=== PATIENT | female | born 1995 | race Two or more races ===

== ENCOUNTER 2017-03-30 13:24 | Emergency (ER) | payer MEDICAID, OTHER ==
[~2017-03-30] VITALS: Ht 152.4 cm; Wt 64.9 kg
[~2017-03-30 13:24] MED LIST: DIAZEPAM5 MG ORAL; IBUPROFEN600 MG ORAL; NKM; TYLENOL EXTRA500 MG ORAL
[2017-03-30 13:55] VITALS: BP 124/73
[2017-03-30] MEDS ORDERED: Tetanus/Diptheria/Pertussis Vaccine 0.5ml Syr IM ONE (14:00)
[2017-03-30] MEDS ORDERED: Bacitracin Oint UD TOPIC ONE (14:00)
[2017-03-30] MEDS ORDERED: IBUPROFEN600 MG ORAL (14:59)
[2017-03-30 15:10] VITALS: BP 112/77
--- NOTE | 2017-03-30 23:16 | Emergency Room Report ---
History of Present Illness General Chief Complaint: Laceration Source: Patient Present Illness HPI The patient is a 21-year-old female presenting for right index finger pain after cutting it on a knife yesterday. She states that this occurred accidentally while washing dishes at home. Pain is a 4/10 dull ache and does not radiate. Worse with touch. Last tetanus shot is unknown. She denies any other injury or symptoms. Allergies: Coded Allergies: No Known Allergies (Unverified , 08/27/15) Patient History Past Medical History: see triage record Pertinent Family History: none Reviewed Nursing Documentation: PMH: Agreed, PSxH: Agreed Nursing Documentation-PMH Past Medical History: No Stated History Review of Systems All Other Systems: negative except mentioned in HPI Physical Exam Vital Signs Date Time Temp Pulse Resp B/P (MAP) Pulse Ox O2 Delivery O2 Flow Rate FiO2 03/30/17 13:45 99.0 92 16 124/73 99 Room Air Sp02 EP Interpretation: reviewed, normal General Appearance: no apparent distress, alert, GCS 15, non-toxic Head: normocephalic, atraumatic Eyes: bilateral eye normal inspection, bilateral eye PERRL Musculoskeletal: normal range of motion, tender - TTP over the R 2nd digit, distal Neurologic: alert, oriented x3, responsive, motor strength/tone normal, sensory intact, speech normal Psychiatric: judgement/insight normal, memory normal, mood/affect normal, no suicidal/homicidal ideation Skin: normal color, no rash, laceration - 1cm linear laceration to distal R 2nd digit. Approximated well Lymphatic: no adenopathy Procedures Laceration/Wound Repair Laceration/Wound Repair : Consent: Verbal Wound Location: upper extremity Wound's Depth, Shape: superficial, linear Wound Length (cm): 2 Wound Explored: clean Irrigated w/ Saline (ccs): 100 Betadine Prep?: Yes Volume Anesthetic (ccs): 0 Wound Repaired With: Dermabond Sterile Dressing Applied?: No Splint Applied?: No Sling Applied?: No Patient Tolerated: Well Complications: None Medical Decision Making PA Attestation Dr. Walls is my supervising physician. Patient management was discussed with my supervising physician Diagnostic Impression: Primary Impression: Finger laceration Qualified Codes: S61.210A - Laceration without foreign body of right index finger without damage to nail, initial encounter ER Course The patient is a 21-year-old female presenting for right index finger pain after cutting it on a knife yesterday Ddx considered include but not limited to fracture, tendon/ligament injury, avulsion, nerve damage Physical exam: No apparent distress Right second digit has a 1 cm linear laceration over the distal phalanx. No active bleeding. Sensation is intact. Full active range of motion is intact The area is cleaned with normal saline and Betadine. Dermabond was used for laceration repair. Well approximated.] The patient will followup with primary doctor. ER precautions are given Last Vital Signs Date Time Temp Pulse Resp B/P (MAP) Pulse Ox O2 Delivery O2 Flow Rate FiO2 03/30/17 15:10 86 14 112/77 97 Room Air 03/30/17 13:55 99.0 Status: improved Disposition: HOME, SELF-CARE Condition: Improved Scripts Ibuprofen* (MOTRIN*) 600 Mg Tablet 600 MG ORAL Q8H Y for For Pain, #30 TAB 0 Refills Prov: ALEJANDRO FUNG 03/30/17 Departure Forms: Return to Work Return to Work Date: Mar 31, 2017 Other Restrictions: Limited Use of R hand Return to Full Activity: Apr 06, 2017 Patient Instructions: Nonsutured Laceration Care Additional Instructions: I discussed my findings with the patient. All questions and concerns have been answered. Treatment and medication compliance have been addressed. Please followup with your primary care doctor within one week for wound check. Return to emergency Department if you experience any symptoms including increased pain, redness, discharge from the wound, and/or fever ALEJANDRO FUNG Mar 30, 2017 23:16
== END 2017-03-30 15:10 | disposition home or self-care (01) ==
LOC: EMR 14:02
DX: S61.210A Laceration without foreign body of right index finger without damage to nail, initial encounter (principal); W26.0XXA Contact with knife, initial encounter; Y93.G1 Activity, food preparation and clean up; Y92.009 Unspecified place in unspecified non-institutional (private) residence as the place of occurrence of the external cause; Z23 Encounter for immunization
CPT/HCPCS: 12001; 90471; 90715; 99283; Z7502

== ENCOUNTER 2017-08-26 20:08 | Emergency (ER) | payer OTHER ==
[~2017-08-26] VITALS: Ht 147.3 cm; Wt 61.2 kg
[2017-08-26] MEDS ORDERED: Lidocaine 1% 10mg/ml/Epi 0.005mg/ml 30ml vial INJ ONE (20:30)
--- NOTE | 2017-08-26 20:39 | Emergency Room Report ---
History of Present Illness General Chief Complaint: Skin Rash/Abscess Source: Patient Present Illness HPI Patient's 21-year-old female who presented after increased right leg swelling and discomfort. Patient had recent had abscess in multiple locations. She reports having no recent fevers. She was sent in from clinic for possible incision and drainage. The patient was noted to have recently been taking Keflex. She reports being on her period. She denies any prior history of immunocompromise. Allergies: Coded Allergies: No Known Allergies (Unverified , 08/27/15) Patient History Past Medical History: see triage record Last Menstrual Period: today Now: No Reviewed Nursing Documentation: PMH: Agreed; PSxH: Agreed Nursing Documentation-PMH Past Medical History: No Stated History Review of Systems All Other Systems: negative except mentioned in HPI Physical Exam Vital Signs Date Time Temp Pulse Resp B/P (MAP) Pulse Ox O2 Delivery O2 Flow Rate FiO2 08/26/17 20:16 98.5 124 18 124/76 98 Room Air 98.4 General Appearance: well appearing, no apparent distress, alert, GCS 15, non- toxic Head: normocephalic, atraumatic ENT: hearing grossly normal, normal voice Neck: full range of motion, supple Respiratory: no respiratory distress, speaking full sentences Musculoskeletal: no calf tenderness, inflammation - right medial thigh Neurologic: normal inspection, alert, oriented x3, responsive, normal gait Psychiatric: mood/affect normal Skin: other - multiple small skin lesions, abscess to right thigh 2cm with surrounding erythema and warmth Procedures Incision and Drainage Incision and Drainage : Consent: Verbal Site: thigh I & D Procedure: betadine prep, sterile drapes applied Wound Location: upper extremity Wound's Depth, Shape: superficial Wound Length (cm): 1 Anesthesia: Lidocaine w/ Epi Volume Anesthetic (ccs): 5 Patient Tolerated: Well Complications: None Medical Decision Making Diagnostic Impression: Primary Impression: Abscess ER Course Patient presented for skin rash. Differential diagnosis included was not limited to abscess, cellulitis, folliculitis, Fourniere's gangrene, endocarditis. Patient has a benign exam and does not appear to require any further imaging or laboratory testing at this time. The patient was consented for incision and drainage. Patient is advised to keep wound clean and dry. She is given prescription for doxycycline. The patient is advised to have the wound rechecked in 2-3 days. The patient is advised to return if she began having fever, increased swelling worsening pain or other concerns. Last Vital Signs Date Time Temp Pulse Resp B/P (MAP) Pulse Ox O2 Delivery O2 Flow Rate FiO2 08/26/17 20:16 98.5 124 18 124/76 98 Room Air 98.4 Status: improved Disposition: HOME, SELF-CARE Condition: Stable Scripts Hydrocodone Bit/Acetaminophen 5-325* (NORCO 5-325*) 1 Each Tablet 1 TAB ORAL Q6H PRN for For Pain, #6 TAB 0 Refills Prov: Gene Fernandez 08/26/17 Doxycycline Monohydrate* (DOXYCYCLINE MONOHYDRATE*) 100 Mg Capsule 100 MG ORAL Q12H, #14 CAP 0 Refills Prov: Gene Fernandez 08/26/17 Gene Fernandez Aug 26, 2017 20:39
[2017-08-26] MEDS ORDERED: Norco 5mg/325mg tab ORAL ONE (20:45)
[2017-08-26] MEDS ORDERED: DOXYCYCLINE MO100 MG ORAL (20:49)
[2017-08-26] MEDS ORDERED: NORCO 5-325 TA1 EACH ORAL (20:49)
[2017-08-26 21:11] VITALS: BP 124/76
[2017-08-26 21:14] VITALS: BP 124/76
== END 2017-08-26 21:15 | disposition home or self-care (01) ==
LOC: EMR 20:36
DX: L02.415 Cutaneous abscess of right lower limb (principal)
CPT/HCPCS: 10060; 99284

== ENCOUNTER 2018-05-02 16:23 | Emergency (ER) | payer OTHER ==
[~2018-05-02] VITALS: Ht 144.8 cm; Wt 64.4 kg
[~2018-05-02 16:23] MED LIST changes: +DOXYCYCLINE MO100 MG ORAL; +NORCO 5-325 TA1 EACH ORAL
--- NOTE | 2018-05-02 17:19 | NUR ---
ED Nurse Note:blood and urine sent to labs , pt. went to vagunal U/S
[2018-05-02 17:26] LABS: APPEARANCE,URINE CLOUDY; BASOPHILS % (AUTO) 0.8 % (0.0-2.0); BILIRUBIN, URINE NEGATIVE (NEGATIVE); COLOR,URINE PALE YELLOW; EOSINOPHILS % (AUTO) 1.1 % (0.0-3.0); GLUCOSE, URINE (UA) NEGATIVE (NEGATIVE); HEMATOCRIT 34.5 % (37.0-47.0); HEMOGLOBIN 11.8 G/DL (12.0-16.0); KETONES,URINE NEGATIVE (NEGATIVE); LEUKOCYTE ESTERASE ,URINE NEGATIVE (NEGATIVE); LYMPHOCYTES % (AUTO) 17.3 % (20.0-45.0); MEAN CORPUSCULAR VOLUME 94 FL (80-99); MONOCYTES % (AUTO) 7.3 % (1.0-10.0); NEUTROPHILS % (AUTO) 73.5 % (45.0-75.0); NITRITE,URINE NEGATIVE (NEGATIVE); PH,URINE 9 (4.5-8.0); PLATELET COUNT 215 K/UL (150-450); PROTEIN,URINE NEGATIVE (NEGATIVE); RED BLOOD COUNT 3.68 M/UL (4.20-5.40); RED CELL DISTRIBUTION WIDTH 11.2 % (11.6-14.8); UROBILINOGEN,URINE NORMAL MG/DL (0.0-1.0); WHITE BLOOD COUNT 8.9 K/UL (4.8-10.8)
[2018-05-02 17:41] LABS: ANION GAP 8 mmol/L (5-15); BLOOD UREA NITROGEN 5 mg/dL (7-18); CARBON DIOXIDE 27 MMOL/L (21-32); CHLORIDE 107 MMOL/L (98-107); CREATININE 0.6 MG/DL (0.55-1.30); POTASSIUM 3.8 MMOL/L (3.5-5.1); SODIUM 142 MMOL/L (136-145)
[2018-05-02 17:45] LABS: ALANINE AMINOTRANSFERASE 22 U/L (12-78); ALBUMIN 3.8 G/DL (3.4-5.0); ALBUMIN/GLOBULIN RATIO 1.2 (1.0-2.7); ALKALINE PHOSPHATASE 74 U/L (46-116); ASPARTATE AMINO TRANSFERASE 12 U/L (15-37); BILIRUBIN,TOTAL 0.2 MG/DL (0.2-1.0)
--- NOTE | 2018-05-02 18:04 | NUR ---
ED Nurse Note:pt. is back from U/S
--- NOTE | 2018-05-02 18:15 | Diagnostic Imaging Report ---
EXAM: US Pelvis Complete, Transabdominal US Pelvis, Transvaginal CLINICAL HISTORY: PAIN TECHNIQUE: Real-time transabdominal and transvaginal pelvic ultrasound (complete) with image documentation. Transvaginal imaging was used for better evaluation of the endometrium and adnexa. COMPARISON: No relevant prior studies available. FINDINGS: Uterus/cervix: Heterogeneous mildly prominent 1.5 cm endometrium in the lower uterus which may be hemorrhage, retained products, versus lesion. Uterus 8 x 5.2 x 4.5 cm. No myometrial mass. Right ovary: Right ovary 2.9 x 2 x 2 cm. Normal blood flow. Left ovary: Left ovary not clearly visualized. Free fluid: Trace free fluid. Bladder: Unremarkable as visualized. Other findings: No IUP identified. IMPRESSION: 1. No IUP identified. 2. Heterogeneous mildly prominent 1.5 cm endometrium in the lower uterus which may be hemorrhage, retained products, versus lesion.
--- NOTE | 2018-05-02 18:22 | Emergency Room Report ---
History of Present Illness General Chief Complaint: Complications Source: Patient Present Illness HPI 22-year-old female presents to the emergency department complaining of vaginal bleeding during early x 5 days. Pt reports initially bright red blood , however now has become dark in color and passing clots. Patient states that she had positive urine test both at home and at her doctor's office and that her doctor estimated that she is approximately 6 weeks . Patient is . She reports some mild lower abdominal cramping which she rates is 8/10 in severity. She states that she had a missed period this month which prompted her to check urine. Denies nausea, vomiting, fevers, chills, dizziness, syncope, DUMONT, constipation or diarrhea. Denies abdominal tenderness. Allergies: Coded Allergies: No Known Allergies (Unverified , 05/02/18) Patient History Past Medical History: see triage record Past Surgical History: none Pertinent Family History: none Last Menstrual Period: Mar 17, 2018 Reviewed Nursing Documentation: PMH: Agreed; PSxH: Agreed Nursing Documentation-PMH Past Medical History: No Stated History Review of Systems All Other Systems: negative except mentioned in HPI Physical Exam Vital Signs Date Time Temp Pulse Resp B/P (MAP) Pulse Ox O2 Delivery O2 Flow Rate FiO2 05/02/18 16:38 98.2 95 16 119/73 99 Room Air Sp02 EP Interpretation: reviewed, normal General Appearance: no apparent distress, alert, GCS 15, non-toxic Head: normocephalic, atraumatic Eyes: bilateral eye normal inspection, bilateral eye PERRL ENT: hearing grossly normal, normal voice Neck: full range of motion Respiratory: lungs clear, normal breath sounds, speaking full sentences Cardiovascular #1: regular rate, rhythm Gastrointestinal: normal bowel sounds, non tender, soft Genitourinary: normal inspection, no CVA tenderness Musculoskeletal: back normal, gait/station normal, normal range of motion, non- tender Neurologic: alert, oriented x3, responsive, motor strength/tone normal, sensory intact, speech normal, grossly normal Psychiatric: judgement/insight normal Skin: normal color, no rash, warm/dry, well hydrated Lymphatic: no adenopathy Medical Decision Making PA Attestation Dr. Cuenca is my supervising Physician whom patient management has been discussed with. Diagnostic Impression: Primary Impression: Threatened miscarriage in early ER Course 22-year-old female presents to the emergency department complaining of vaginal bleeding during early x 5 days. Pt reports initially bright red blood , however now has become dark in color and passing clots. Patient states that she had positive urine test both at home and at her doctor's office and that her doctor estimated that she is approximately 6 weeks . Patient is . She reports some mild lower abdominal cramping which she rates is 8/10 in severity. She states that she had a missed period this month which prompted her to check urine. Denies nausea, vomiting, fevers, chills, dizziness, syncope, DUMONT, constipation or diarrhea. Denies abdominal tenderness. Ddx considered but are not limited to: Fibroid, ectopic , Fibroid, Spontaneous , missed miscarriage. Vital signs: are WNL, pt. is afebrile H&PE are most consistent with: spotting during early , threatened miscarriage. ORDERS: -CBC, CMP: Unremarkable no evidence of acute blood loss/significant anemia. -serum Hcg Quant: 2613 - Blood/RH type and screen- see attached labs -Pelvic US complete- Thickened myometrium, no IUP noted, ED INTERVENTIONS: None at this time. I discussed with the patient that she requires close outpatient CLINICAL APPEALS REVIEWER follow- up and repeat beta hCG to assess trend in her hormone level. Also d/w pt. results of blood work and that she does not show signs of significant blood loss. I discussed with her that this could be a possible miscarriage as well and that medications to stop the bleeding could cause her to retain material and that this decision would best be made by the CLINICAL APPEALS REVIEWER. I discussed with this patient that she needs to follow-up with CLINICAL APPEALS REVIEWER within 48 hours if she is unable to do so and she is still having symptoms or she develops new or worsening symptoms before she is able to be seen by CLINICAL APPEALS REVIEWER that she should promptly return to the emergency department. DISCHARGE: At this time pt. is stable for d/c to home. Will provide printed patient care instructions, and any necessary prescriptions. Care plan and follow up instructions have been discussed with the patient prior to discharge. Labs Test 05/02/18 17:10 White Blood Count 8.9 K/UL (4.8-10.8) Red Blood Count 3.68 M/UL (4.20-5.40) Hemoglobin 11.8 G/DL (12.0-16.0) Hematocrit 34.5 % (37.0-47.0) Mean Corpuscular Volume 94 FL (80-99) Mean Corpuscular Hemoglobin 32.1 PG (27.0-31.0) Mean Corpuscular Hemoglobin Concent 34.3 G/DL (32.0-36.0) Red Cell Distribution Width 11.2 % (11.6-14.8) Platelet Count 215 K/UL (150-450) Mean Platelet Volume 8.8 FL (6.5-10.1) Neutrophils (%) (Auto) 73.5 % (45.0-75.0) Lymphocytes (%) (Auto) 17.3 % (20.0-45.0) Monocytes (%) (Auto) 7.3 % (1.0-10.0) Eosinophils (%) (Auto) 1.1 % (0.0-3.0) Basophils (%) (Auto) 0.8 % (0.0-2.0) Urine Color Pale yellow Urine Appearance Cloudy Urine pH 9 (4.5-8.0) Urine Specific [place] 1.020 (1.005-1.035) Urine Protein Negative (NEGATIVE) Urine Glucose (UA) Negative (NEGATIVE) Urine Ketones Negative (NEGATIVE) Urine Blood 4+ (NEGATIVE) Urine Nitrite Negative (NEGATIVE) Urine Bilirubin Negative (NEGATIVE) Urine Urobilinogen Normal MG/DL (0.0-1.0) Urine Leukocyte Esterase Negative (NEGATIVE) Urine RBC 5-10 /HPF (0 - 2) Urine WBC 0-2 /HPF (0 - 2) Urine Squamous Epithelial Cells Few /LPF (NONE/OCC) Urine Amorphous Sediment Many /LPF (NONE) Urine Bacteria Few /HPF (NONE) Sodium Level 142 MMOL/L (136-145) Potassium Level 3.8 MMOL/L (3.5-5.1) Chloride Level 107 MMOL/L (98-107) Carbon Dioxide Level 27 MMOL/L (21-32) Anion Gap 8 mmol/L (5-15) Blood Urea Nitrogen 5 mg/dL (7-18) Creatinine 0.6 MG/DL (0.55-1.30) Estimat Glomerular Filtration Rate > 60 mL/min (>60) Glucose Level 94 MG/DL (74-106) Calcium Level 9.0 MG/DL (8.5-10.1) Total Bilirubin 0.2 MG/DL (0.2-1.0) Aspartate Amino Transf (AST/SGOT) 12 U/L (15-37) Alanine Aminotransferase (ALT/SGPT) 22 U/L (12-78) Alkaline Phosphatase 74 U/L (46-116) Total Protein 7.0 G/DL (6.4-8.2) Albumin 3.8 G/DL (3.4-5.0) Globulin 3.2 g/dL Albumin/Globulin Ratio 1.2 (1.0-2.7) Human Chorionic Gonadotropin, Quant 2613 mIU/mL (1-6) CT/MRI/US Diagnostic Results CT/MRI/US Diagnostic Results : Imaging Test Ordered: Pelvic US Impression " IMPRESSION: 1. No IUP identified. 2. Heterogeneous mildly prominent 1.5 cm endometrium in the lower uterus which may be hemorrhage, retained products, versus lesion." ---Per official radiology report- Please see report for specific details. Last Vital Signs Date Time Temp Pulse Resp B/P (MAP) Pulse Ox O2 Delivery O2 Flow Rate FiO2 05/02/18 16:38 98.2 95 16 119/73 99 Room Air Disposition: HOME, SELF-CARE Condition: Stable Referrals: NON PHYSICIAN (PCP) Additional Instructions: Take medications as directed. Follow up with a OBGYN within 3 days, even if your symptoms have resolved. Return sooner to ED if new symptoms occur, or current symptoms become worse. - Please note that this Emergency Department Report was dictated using [employer] roller technology software, occasionally this can lead to erroneous entry secondary to interpretation by the dictation equipment. Taisha Ribera May 02, 2018 18:22
[2018-05-02 19:06] VITALS: BP 119/73
--- NOTE | 2018-05-02 19:07 | NUR ---
ED Nurse Note: pt. was examed, treated and cleared for D/C home by ER provider. PT. received D/C instructions with prescriptions, verbalized understanding and left ER with steady gait and all personal belongings , ID bend removed.
== END 2018-05-02 19:07 | disposition home or self-care (01) ==
LOC: EMR 17:05
DX: O20.0 Threatened abortion (principal); Z3A.00 Weeks of gestation of pregnancy not specified
CPT/HCPCS: 36415; 76856; 80053; 81003; 84702; 85025; 99284